=== PATIENT | female | born 1975 | race Caucasian/White ===

== ENCOUNTER 2022-04-26 04:50 | Emergency (ER) | payer SELFPAY ==
[~2022-04-26] VITALS: Ht 157.5 cm; Wt 62.6 kg
--- NOTE | 2022-04-26 04:50 | NUR ---
PT ZOHAIB GONZALES, PREBOOK. TAKEN TO CHAIR
[2022-04-26 05:00] VITALS: BP 134/67
--- NOTE | 2022-04-26 05:09 | NUR ---
Dr. Tsai examining patient.
[2022-04-26 05:14] VITALS: BP 134/67
--- NOTE | 2022-04-26 05:14 | NUR ---
Patient D/C to custody.
== END 2022-04-26 05:14 ==
LOC: MED 04:50
DX: S00.31XA Abrasion of nose, initial encounter (principal); Z02.89 Encounter for other administrative examinations; V89.2XXA Person injured in unspecified motor-vehicle accident, traffic, initial encounter; Y93.89 Activity, other specified; Y92.89 Other specified places as the place of occurrence of the external cause; Y99.8 Other external cause status
CPT/HCPCS: 99283